=== PATIENT | male | born 2000 | race American Indian/Alaskan Native ===

== ENCOUNTER 2021-01-29 00:14 | Emergency (ER) | payer OTHER ==
[2021-01-29 01:12] VITALS: BP 136/79
[2021-01-29] MEDS ORDERED: HYDROcodone/ACETAMINOPHEN 5-325 MG TAB PO ONE (03:06)
[2021-01-29] MEDS ORDERED: KETOROLAC 30 MG/1 ML INJ IM ONE (03:06)
--- NOTE | 2021-01-29 03:08 | Emergency Department Report ---
ED General Adult HPI - General Chief complaint: Back Pain/Injury Stated complaint: LOWER BACK PAIN Time Seen by Provider: 01/29/21 01:05 Source: patient Mode of arrival: Ambulatory Limitations: No Limitations - History of Present Illness Initial comments: 20-year-old -[place] male patient presents with complaints of acute on chronic low back pain today. Patient states he sustained an injury to his low back from work in September 2020 and has been following with the change management specialist. He states this past week, he received an epidural shot and a steroid injection in his back and was diagnosed with a bulging disc via MRI at the end of October. He states after returning to work today, the pain suddenly worsened and admits to doing a great deal of lifting heavy objects. He denies any numbness/tingling/weakness in his limbs, loss of bladder/bowel control, or difficulty with ambulation. Patient rates his current pain is 8/10 in severity and states the muscle relaxers prescribed and not helping. He also states OTC ibuprofen is not helping. Severity scale (0 -10): 6 - Related Data Previous Rx's Medication Instructions Recorded Last Taken Type Diclofenac Sodium 75 mg PO BID PRN #14 tablet. 01/29/21 Unknown Rx Allergies Allergy/AdvReac Type Severity Reaction Status Date / Time No Known Allergies Allergy Unverified 01/29/21 01:12 ED Review of Systems ROS: Stated complaint: LOWER BACK PAIN Other details as noted in HPI Constitutional: denies: fever, malaise Respiratory: denies: shortness of breath Gastrointestinal: denies: hematochezia Genitourinary: denies: hematuria Musculoskeletal: back pain Neurological: denies: numbness, paresthesias, abnormal gait ED Past Medical Hx - Past Medical History Previous Medical History?: Yes Additional medical history: Chronic Back Pain - Surgical History Past Surgical History?: No - Social History Smoking Status: Never Smoker Substance Use Type: None - Medications Home Medications: Home Medications Medication Instructions Recorded Confirmed Last Taken Type Diclofenac Sodium 75 mg PO BID PRN #14 tablet. 01/29/21 Unknown Rx ED Physical Exam - General Limitations: No Limitations General appearance: alert, in no apparent distress - Head Head exam: Present: atraumatic, normocephalic - Eye Eye exam: Present: normal appearance. Absent: scleral icterus - Respiratory Respiratory exam: Absent: respiratory distress - Cardiovascular Cardiovascular Exam: Present: regular rate - Back Exam Back exam: Present: paraspinal tenderness (Lower lumbar), vertebral tenderness (Lower lumbar, no obvious deformity noted) - Expanded Back Exam Expanded Back exam: Absent: saddle anesthesia - Neurological Exam Neurological exam: Present: alert, oriented X3, normal gait. Absent: motor sensory deficit - Expanded Neurological Exam Expanded Motor strength exam: RUE: 5, LUE: 5, RLE: 5, LLE: 5 - Psychiatric Psychiatric exam: Present: normal affect, normal mood - Skin Skin exam: Present: warm, dry, intact, normal color. Absent: rash ED Course Vital Signs 01/29/21 01/29/21 01:11 03:05 Temperature 98.5 F Pulse Rate 104 H 78 Respiratory 18 Rate Blood Pressure 136/79 [Left] O2 Sat by Pulse 100 100 Oximetry ED Medical Decision Making - Medical Decision Making 20-year-old -[place] male patient presents with complaints of acute on chronic low back pain today. Patient states he sustained an injury to his low back from work in September 2020 and has been following with the change management specialist. He states this past week, he received an epidural shot and a steroid injection in his back and was diagnosed with a bulging disc via MRI at the end of October. He states after returning to work today, the pain suddenly worsened and admits to doing a great deal of lifting heavy objects. He denies any numbness/tingling/weakness in his limbs, loss of bladder/bowel control, or difficulty with ambulation. Patient rates his current pain is 8/10 in severity and states the muscle relaxers prescribed and not helping. He also states OTC ibuprofen is not helping. Patient given Toradol and Robaxin for his symptoms. Recommend follow-up with with his spinal specialist as scheduled next week. Also discussed importance of rest and icing of the low back. Strict return precautions were discussed in detail with patient who verbalized understanding. He is well-appearing and stable for discharge home. Critical care attestation.: If time is entered above; I have spent that time in minutes in the direct care of this critically ill patient, excluding procedure time. ED Disposition Clinical Impression: Acute exacerbation of chronic low back pain, Degenerative disc disease Disposition: TO HOME OR SELFCARE Is pt being admited?: No Condition: Stable Instructions: Acute Back Pain, Adult, Degenerative Disk Disease Additional Instructions: Your Spinal Specialist as scheduled next week Prescriptions: Diclofenac Sodium 75 mg PO BID PRN #14 tablet.dr DESOUZA Reason: pain
== END 2021-01-29 04:19 | disposition home or self-care (01) ==
LOC: ED 00:14
DX: M51.36 Other intervertebral disc degeneration, lumbar region (principal); Z79.899 Other long term (current) drug therapy
CPT/HCPCS: 96372; 99282; J1885